=== PATIENT | female | born 1985 | race Caucasian/White ===

== ENCOUNTER 2017-10-01 19:20 | Inpatient (IN) | payer OTHER ==
[2017-10-02 00:08] VITALS: BMI 31.2
[2017-10-04 08:25] VITALS: BP 134/72; PULSE 80; TEMP 98.1
== END 2017-10-04 14:00 | disposition home or self-care (01) | DRG 540 ==
LOC: JDEL 19:20 → JLDR 20:10 → J3W 10-02 01:01
PROVIDERS: ADMIT Obstetrics & Gynecology; ATTEND Obstetrics & Gynecology
PROC: 10D00Z1 Extraction of Products of Conception, Low, Open Approach (ICD-10-PCS; principal; 2017-10-01)
PROC: 0UB70ZZ Excision of Bilateral Fallopian Tubes, Open Approach (ICD-10-PCS; 2017-10-01)
DX: O32.2XX0 Maternal care for transverse and oblique lie, not applicable or unspecified (principal); Z3A.39 39 weeks gestation of pregnancy; Z37.0 Single live birth; Z30.2 Encounter for sterilization
CPT/HCPCS: 36415; 36430; 36511; 36600; 80053; 80307; 81003; 82803; 85025; 85610; 85730; 86593; 86762; 86850; 86900; 86901; 86922; 87340; 87389; 88302-TC; 88307-TC; P9038; P9058